=== PATIENT | female | born 1995 | race Caucasian/White ===

== ENCOUNTER 2018-02-24 21:54 | Observation (INO) ==
[2018-02-24 22:40] LABS: Baso % (Auto) 0.4 % (0.0-2.0); Eos # (Auto) 0.2 th/mm3 (0.0-0.4); Eos % (Auto) 1.6 % (0.0-4.0); Hematocrit 40.2 % (35.0-46.0); Hemoglobin 13.6 gm/dL (11.6-15.3); Lymph # (Auto) 2.5 th/mm3 (1.0-4.8); Lymph % (Auto) 25.2 % (9.0-44.0); Mean Corpuscular HGB Conc 33.7 % (32.0-36.0); Mean Corpuscular Hemoglobin 30.3 pg (27.0-34.0); Mean Corpuscular Volume 89.9 fL (80.0-100.0); Mean Platelet Volume 9.5 fL (7.0-11.0); Mono # (Auto) 0.8 th/mm3 (0.0-0.9); Mono % (Auto) 7.7 % (0.0-8.0); Neut # (Auto) 6.3 th/mm3 (1.8-7.7); Neut % (Auto) 65.1 % (16.0-70.0); Platelet Count 242 th/mm3 (150-450); Red Blood Count 4.47 mil/mm3 (4.00-5.30); Red Cell Distribution Width 13.2 % (11.6-17.2); White Blood Count 9.8 th/mm3 (4.0-11.0)
--- NOTE | 2018-02-24 22:40 | CT ---
EXAM DATE: 02/24/2018 10:37 PM EST AGE/SEX: 22 years / Female INDICATIONS: Right facial droop. CLINICAL DATA: This is the patient's initial encounter. Patient reports that signs and symptoms have been present for 1 day and indicates a pain score of 0/10. MEDICAL/SURGICAL HISTORY: None. None. RADIATION DOSE: 56.35 CTDI (mGy) COMPARISON: No prior exams available for comparison. TECHNIQUE: CT of the head without contrast. Using automated exposure control and adjustment of the mA and/or kV according to patient size, radiation dose was kept as low as reasonably achievable to ob tain optimal diagnostic quality images. DICOM format image data is available electronically for revi ew and comparison. FINDINGS: Cerebrum: The ventricles are normal for age. No evidence of midline shift, mass lesion, hemorrhage or acute infarction. No extraaxial fluid collections are seen. Posterior Fossa: The cerebellum and brainstem are intact. The 4th ventricle is midline. The cerebe llopontine angle is unremarkable. Extracranial: The visualized portion of the orbits is intact. Skull: The calvaria is intact. No evidence of skull fracture. CONCLUSION: 1. Negative noncontrast CT brain. . Electronically signed by: Ras Stacy MD 02/24/2018 10:39 PM EST
[2018-02-24 23:01] LABS: Alanine Aminotransferase 21 U/L (10-53); Albumin 3.8 g/dL (3.4-5.0); Anion Gap 9 meq/L (5-15); Aspartate Aminotransferase 19 U/L (15-37); Blood Urea Nitrogen 15 mg/dL (7-18); Calcium 8.4 mg/dL (8.5-10.1); Carbon Dioxide 25.8 meq/L (21.0-32.0); Chloride 105 meq/L (98-107); Glomerular Filtration Rate Greater Than 89 mL/min (>89); Glucose,Random 126 mg/dL (74-106); Potassium 3.2 meq/L (3.5-5.1); Sodium 140 meq/L (136-145)
[2018-02-24 23:04] LABS: Alkaline Phosphatase 48 U/L (45-117); Total Protein 7.8 g/dL (6.4-8.2)
--- NOTE | 2018-02-24 23:15 | ED ---
HPI General Chief Complaint: Neuro Symptoms/Deficit Stated Complaint: facial pain Time Seen by Provider: 02/24/18 22:11 Source: patient Mode of arrival: ambulatory Limitations: no limitations History of Present Illness HPI Narrative: The patient is 22 years old and arrives with a complaint of asymmetric smile. She notes that the right lower lip appears lower on her smile the left lower lip. This is acute and new. No similar prior episode has occurred. She reports no acute numbness tingling weakness elsewhere. Symptoms started suddenly about 30 minutes prior to ER arrival. Patient denies drug alcohol abuse. She reports being a chronic Lyme carrier. 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 She reports her father has a history of schwannoma. Related Data Home Medications Medication Instructions Recorded Confirmed norgestimate-ethinyl estradiol 1 tab PO DAILY 02/24/18 02/24/18 [Tri-Sprintec (28)] Allergies Allergy/AdvReac Type Severity Reaction Status Date / Time oxycodone Allergy Anaphylaxis Verified 02/24/18 22:18 Penicillins Allergy Anaphylaxis Verified 02/24/18 22:18 Review of Systems ROS: all other systems reviewed are negative [facility] Medical History Medical History SLAP lesion of left shoulder (Acute) Social History Social History Second Hand Smoke Exposure: No Smoking Status: Never smoker How Often Do You Have a Drink Containing Alcohol: Never Recent Travel in [facility] within the Last 8 Weeks: No Recent Out of Country Travel within the Last 8 Weeks: No Exam Narrative Exam Narrative: GENERAL: 22-year-old female pleasant well-nourished well- developed no acute distress SKIN: Focused skin assessment warm/dry. HEAD: Atraumatic. Normocephalic. EYES: Pupils equal and round. No scleral icterus. No injection or drainage. ENT: No nasal bleeding or discharge. Mucous membranes pink and moist. NECK: Trachea midline. No JVD. CARDIOVASCULAR: Regular rate and rhythm. No murmur appreciated. RESPIRATORY: No accessory muscle use. Clear to auscultation. Breath sounds equal bilaterally. GASTROINTESTINAL: Abdomen soft, non-tender, nondistended. Hepatic and splenic margins not palpable. MUSCULOSKELETAL: No obvious deformities. No clubbing. No cyanosis. No edema. NEUROLOGICAL: There is mild facial asymmetry with a smile on the right side. There is no depression of the nasolabial fold on either side. The right lower lip does appear slightly lower than the left side and the patient smiles. There is also some uvular deviation to the left. Forehead wrinkle normal. the eyebrows are symmetric with elevation. Motor function is normal 5/5 throughout. Speech memory and mentation normal. PSYCHIATRIC: Appropriate mood and affect; insight and judgment normal. Course Initial Documented Vital Signs Temperature 98.0 F 02/24/18 22:09 Pulse Rate 91 H 02/24/18 22:09 Respiratory Rate 16 02/24/18 22:09 Blood Pressure 142/92 H 02/24/18 22:09 Pulse Oximetry 100 02/24/18 22:09 Last Documented Vital Signs Temperature 98.0 F 02/24/18 22:09 Pulse Rate 84 02/24/18 22:22 Respiratory Rate 16 02/24/18 22:09 Blood Pressure 142/92 H 02/24/18 22:09 Pulse Oximetry 100 02/24/18 22:09 Medical Decision Making [facility] Narrative Medical decision making narrative: Patient has a focal neurologic deficit involving the right lower lip. There is also uvula deviation. There is no other focal deficit. Does not appear to be Pantoja's to the symmetry of the eyebrows. Uvular deviation is noted. I do not believe this patient would benefit from TPA and is considered extremely unlikely to be a stroke. Patient has an excellent understanding overall the pathology and the treatment is agreement that TPA would be inappropriate. Case discussed with neurologist Dr. Willard who advises admission for MRI in the morning and neurology consultation. Case discussed Dr. Fairchild for the hospitalist service. Medical Screen Exam Complete: Yes Emergency Medical Condition: Yes Differential Diagnosis Differential Diagnosis: TIA, Pantoja's palsy, stroke, peripheral nerve palsy, mononeuropathy multiplex, Lyme disease Lab Data Result diagrams: 02/24/18 22:30 02/24/18 22:30 Lab Results 02/24/18 02/24/18 Range/Units 22:30 22:30 WBC 9.8 (4.0-11.0) th/mm3 RBC 4.47 (4.00-5.30) mil/mm3 Hgb 13.6 (11.6-15.3) gm/dL Hct 40.2 (35.0-46.0) % MCV 89.9 (80.0-100.0) fL MCH 30.3 (27.0-34.0) pg MCHC 33.7 (32.0-36.0) % RDW 13.2 (11.6-17.2) % Plt Count 242 (150-450) th/mm3 MPV 9.5 (7.0-11.0) fL Neut % (Auto) 65.1 (16.0-70.0) % Lymph % (Auto) 25.2 (9.0-44.0) % [place] % (Auto) 7.7 (0.0-8.0) % Eos % (Auto) 1.6 (0.0-4.0) % Baso % (Auto) 0.4 (0.0-2.0) % Neut # (Auto) 6.3 (1.8-7.7) th/mm3 Lymph # (Auto) 2.5 (1.0-4.8) th/mm3 [place] # (Auto) 0.8 (0.0-0.9) th/mm3 Eos # (Auto) 0.2 (0.0-0.4) th/mm3 Baso # (Auto) 0.0 (0.0-0.2) th/mm3 WBC Differential . Differential Comment Auto diff final Sodium 140 (136-145) meq/L Potassium 3.2 L (3.5-5.1) meq/L Chloride 105 (98-107) meq/L Carbon Dioxide 25.8 (21.0-32.0) meq/L Anion Gap 9 (5-15) meq/L BUN 15 (7-18) mg/dL Creatinine 0.68 (0.50-1.00) mg/dL Estimated GFR Greater than 89 (>89) mL/min Random Glucose 126 H (74-106) mg/dL Calcium 8.4 L (8.5-10.1) mg/dL Total Bilirubin 0.2 (0.2-1.0) mg/dL AST 19 (15-37) U/L ALT 21 (10-53) U/L Alkaline Phosphatase 48 (45-117) U/L Total Protein 7.8 (6.4-8.2) g/dL Albumin 3.8 (3.4-5.0) g/dL Imaging Data Radiologist's impression: Head CT 11/14/18 22:19 CONCLUSION: 1. Negative noncontrast CT brain. . Discharge Plan Discharge Disposition Patient Disposition: 30 Still Patient Physicians Team ED Provider: Zaid Schrader Primary Care Provider: Primary Care Melly Mayen Rxs /Orders / Referrals /Forms Prescriptions: No Action norgestimate-ethinyl estradiol [Tri-Sprintec (28)] 0.18/0.215/0.25 mg-35 mcg ( 28) Tablet 1 tab PO DAILY RF: 0 Status ED Status: With Doctor
[2018-02-25 00:23] LABS: Amphetamine Screen,Urine Neg (Neg); Barbiturate Screen,Urine Neg (Neg); Cannabinoid Screen,Urine Neg (Neg); Cocaine Screen,Urine Neg (Neg); Opiate Screen,Urine Neg (Neg)
[2018-02-25 00:29] LABS: Bacteria,Urine Rare /hpf; Bilirubin,Urine Negative (Negative); Clarity,Urine Clear (Clear); Color,Urine Straw (Yellw/Straw); Glucose,Urine (UA) Negative (Negative); Leukocyte Esterase,Urine Negative (Negative); Nitrite,Urine Negative (Negative); Specific Gravity,Urine 1.004 (1.002-1.035); Squamous Epithelial Cell,Urine 1 /hpf (0-5)
[2018-02-25] MEDS ORDERED: Dextrose 50% in Water 50 ML Vial IV.PUSH PRN (00:34)
[2018-02-25] MEDS ORDERED: Insulin NovoLOG Aspart Correctional Sugar Inj SQ PRN (00:34)
[2018-02-25] MEDS ORDERED: Sod Chloride 0.9% Inj 1,000 ML IV.CONT SCH (00:45)
[2018-02-25] MEDS ORDERED: Sodium Chloride 0.9% 2 ML Flush PRN IV.FLUSH (02:00)
--- NOTE | 2018-02-25 02:00 | P.HP ---
History of Present Illness Service: [facility] Primary Care Physician: No Primary Care Physician History of Present Illness: 22-year-old female with a past medical history significant for chronic Lyme disease (diagnosed 2 years ago) presents to the emergency department for the evaluation of right sided mouth droop. The patient reports that she was in the bathroom when she saw her face in the mirror and noticed that the right side of her mouth had a droop that was worse with smiling. The patient denies any word finding difficulties or slurred speech. No confusion. No recent trauma. No history of recent upper respiratory illness or fevers. No chest pain or shortness of breath. No abdominal pain. No nausea/vomiting/diarrhea. No other focal deficits. Review of Systems All other systems reviewed negative except as stated in HPI PMFSH - History History Provided By: Patient - Medical History Medical History: Medical History (Last Updated 02/25/18 @ 01:52 by Janis Fairchild MD) Lyme disease SLAP lesion of left shoulder - Surgical History Surgical History: Surgical History (Last Updated 02/25/18 @ 01:52 by Janis Fairchild MD) Status post labral repair of shoulder - Family History Family History: Family History (Last Updated 02/25/18 @ 01:53 by Janis Fairchild MD) Other CHF (congestive heart failure) Hypertension - Social History I have reviewed the patient's Social History: Yes - Tobacco History Second Hand Smoke Exposure: No Smoking Status: Never smoker - Alcohol History How Often Do You Have a Drink Containing Alcohol: Never - Travel History Recent Travel in the [place] Within the Last 8 Weeks: No Recent Travel Out of the Country Within the Last 8 Weeks: No - Immunization History Tetanus Immunization: <5 Years Medications and Allergies Active Medications: Active Medications Aspirin (Aspirin) 325 mg PO DAILY [facility] Dextrose (D50w Vial) 50 ml IV.PUSH UNSCH PRN PRN Reason: per Hypoglycemic Protocol Glucagon (Glucagon Inj) 1 mg OTHER UNSCH PRN PRN Reason: per Hypoglycemic Protocol Sodium Chloride (Ns Inj) 1,000 mls @ 70 mls/hr IV.CONT .[id number] ANNE Last Admin: 02/25/18 01:03 Dose: 70 mls/hr Insulin Aspart (Novolog Insulin Correctional Sugar Inj) 0 unit SQ ACHS PRN; Protocol PRN Reason: Per Protocol Sodium Chloride (Ns Flush) 2 ml IV.FLUSH PRN PRN PRN Reason: FLUSH AFTER USING IV ACCESS Allergies Allergy/AdvReac Type Severity Reaction Status Date / Time oxycodone Allergy Anaphylaxis Verified 02/24/18 22:18 Penicillins Allergy Anaphylaxis Verified 02/24/18 22:18 Home Medications Medication Instructions Recorded Confirmed Type norgestimate-ethinyl estradiol 1 tab PO DAILY 02/24/18 02/24/18 History [Tri-Sprintec (28)] Exam Vital signs: Vital Signs 02/24/18 22:09 02/24/18 22:22 02/25/18 01:04 Temperature 98.0 F Pulse Rate 91 H 84 78 Respiratory Rate 16 Blood Pressure 142/92 H Pulse Oximetry 100 Intake & Output 02/24/18 02/24/18 02/25/18 06:59 18:59 06:59 Weight 50 kg Narrative: Gen.: No acute distress Head: Normocephalic. Atraumatic. EENT: Pupils equal round and reactive to light. Nose without drainage. Airway intact. Throat without injection. Cardiovascular: Regular rate and rhythm. No murmurs, rubs or gallops. Respiratory: Lungs clear to auscultation bilaterally. No wheezes or rhonchi. Abdomen: Soft, nontender, nondistended. No peritoneal signs. Musculoskeletal: No gross deformities. No edema. Skin: No obvious rashes or erythema. Neuro: Right mouth facial droop. No other cranial nerve deficits. Strength 5/ 5 throughout. Normal speech. Alert and oriented x4. Results - Labs CBC & Chem 7: 02/24/18 22:30 02/24/18 22:30 Labs: Laboratory Results - last 24 hr 02/24/18 02/24/18 02/24/18 22:30 22:30 23:22 WBC 9.8 RBC 4.47 Hgb 13.6 Hct 40.2 MCV 89.9 MCH 30.3 MCHC 33.7 RDW 13.2 Plt Count 242 MPV 9.5 Neut % (Auto) 65.1 Lymph % (Auto) 25.2 [place] % (Auto) 7.7 Eos % (Auto) 1.6 Baso % (Auto) 0.4 Neut # (Auto) 6.3 Lymph # (Auto) 2.5 [place] # (Auto) 0.8 Eos # (Auto) 0.2 Baso # (Auto) 0.0 WBC Differential . Differential Comment Auto diff final Sodium 140 Potassium 3.2 L Chloride 105 Carbon Dioxide 25.8 Anion Gap 9 BUN 15 Creatinine 0.68 Estimated GFR Greater than 89 Random Glucose 126 H Calcium 8.4 L Total Bilirubin 0.2 AST 19 ALT 21 Alkaline Phosphatase 48 Total Protein 7.8 Albumin 3.8 Urine Color Urine Clarity Urine pH Ur Specific [place] Urine Protein Urine Glucose (UA) Urine Ketones Urine Occult Blood Urine Nitrate Urine Bilirubin Urine Urobilinogen Ur Leukocyte Esterase Ur Squamous Epith Cells Urine Bacteria Micro UA Comment Ur Microscopic Review Urine Culture Comments Urine Opiates Screen Neg Ur Barbiturates Screen Neg Ur Amphetamines Screen Neg U Benzodiazepines Scrn Neg Urine Cocaine Screen Neg U Cannabinoids Screen Neg 02/24/18 23:22 WBC RBC Hgb Hct MCV MCH MCHC RDW Plt Count MPV Neut % (Auto) Lymph % (Auto) [place] % (Auto) Eos % (Auto) Baso % (Auto) Neut # (Auto) Lymph # (Auto) [place] # (Auto) Eos # (Auto) Baso # (Auto) WBC Differential Differential Comment Sodium Potassium Chloride Carbon Dioxide Anion Gap BUN Creatinine Estimated GFR Random Glucose Calcium Total Bilirubin AST ALT Alkaline Phosphatase Total Protein Albumin Urine Color Straw Urine Clarity Clear Urine pH 6.0 Ur Specific [place] 1.004 Urine Protein Negative Urine Glucose (UA) Negative Urine Ketones Negative Urine Occult Blood Small H Urine Nitrate Negative Urine Bilirubin Negative Urine Urobilinogen Less than 2 Ur Leukocyte Esterase Negative Ur Squamous Epith Cells 1 Urine Bacteria Rare H Micro UA Comment Culture not ind Ur Microscopic Review Not Reportable Urine Culture Comments Culture not ind Urine Opiates Screen Ur Barbiturates Screen Ur Amphetamines Screen U Benzodiazepines Scrn Urine Cocaine Screen U Cannabinoids Screen - Imaging Impressions Head CT 02/24/18 22:19 CONCLUSION: 1. Negative noncontrast CT brain. . Caprini VTE Risk Assessment Caprini VTE Risk Assessment: No/Low Risk (score <= 1) Caprini Risk Assessment Model: Point Value = 1 Point Value = 2 Point Value = 3 Point Value = 5 Age 41-60 Minor surgery BMI > 25 kg/m2 Swollen legs Varicose veins or History of unexplained or recurrent spontaneous Oral contraceptives or hormone replacement Sepsis (< 1 month) Serious lung disease, including pneumonia (< 1 month) Abnormal pulmonary function Acute myocardial infarction Congestive heart failure (< 1 month) History of inflammatory bowel disease Medical patient at bed rest Age 61-74 Arthroscopic surgery Major open surgery (> 45 min) Laparoscopic surgery (> 45 min) Malignancy Confined to bed (> 72 hours) Immobilizing plaster cast Central venous access Age >= 75 History of VTE Family history of VTE Factor V Leiden Prothrombin [id number] Lupus anticoagulant Anticardiolipin antibodies Elevated serum homocysteine Heparin-induced thrombocytopenia Other congenital or acquired thrombophilia Stroke (< 1 month) Elective arthroplasty Hip, pelvis, or leg fracture Acute spinal cord injury (< 1 month) Prophylaxis Regimen: Total Risk Factor Score Risk Level Prophylaxis Regimen 0-1 Low Early ambulation 2 Moderate Order ONE of the following: *Sequential Compression Device (SCD) *Heparin 5000 units SQ BID 3-4 Higher Order ONE of the following medications: *Heparin 5000 units SQ TID *Enoxaparin/Lovenox 40 mg SQ daily (WT < 150 kg, CrCl > 30 mL/min) *Enoxaparin/Lovenox 30 mg SQ daily (WT < 150 kg, CrCl > 10-29 mL/min) *Enoxaparin/Lovenox 30 mg SQ BID (WT < 150 kg, CrCl > 30 mL/min) AND/OR *Sequential Compression Device (SCD) 5 or more Highest Order ONE of the following medications: *Heparin 5000 units SQ TID (Preferred with Epidurals) *Enoxaparin/Lovenox 40 mg SQ daily (WT < 150 kg, CrCl > 30 mL/min) *Enoxaparin/Lovenox 30 mg SQ daily (WT < 150 kg, CrCl > 10-29 mL/min) *Enoxaparin/Lovenox 30 mg SQ BID (WT < 150 kg, CrCl > 30 mL/min) AND *Sequential Compression Device (SCD) Assessment and Plan - Plan Assessment/plan: 1. Neurologic deficit Head CT negative for acute process MRI/MRA pending Neurology consulted, appreciate recommendations Cannot exclude complications from Lyme disease, Lyme antibody and PCR pending 2. Hypokalemia Potassium 3.2, status post p.o. repletion Monitor BMP FEN Regular diet Electrolytes: As above
--- NOTE | 2018-02-25 08:18 | MR ---
EXAM DATE: 02/25/2018 8:14 AM EST AGE/SEX: 22 years / Female INDICATIONS: TIA. Right facial droop. CLINICAL DATA: This is the patient's subsequent encounter. Patient reports that signs and symptoms h ave been present for 2 days and indicates a pain score of 0/10. MEDICAL/SURGICAL HISTORY: . Lyme's disease. . Right shoulder repair. COMPARISON: [facility] [place], CT HEAD W/O CONTRAST, 02/24/2018. . TECHNIQUE: 3D [id number] MRA was performed. Source images, multiplanar STS MIP, and 3D volum e MIP reconstructions were reviewed. FINDINGS: There is excellent visualization of the major intracranial arteries out to the second-order branch ve ssels. There is no evidence for aneurysm, vessel truncation or stenosis, and no evidence for vascula r malformation. There are patent bilateral posterior communicating arteries. CONCLUSION: 1. No significant stenosis, occlusion or aneurysm formation. 2. Patent bilateral posterior communicating arteries. Electronically signed by: Merrill Lanza MD 02/25/2018 8:16 AM EST
--- NOTE | 2018-02-25 08:20 | MR ---
EXAM DATE: 02/25/2018 8:15 AM EST AGE/SEX: 22 years / Female INDICATIONS: TIA. Right facial droop. CLINICAL DATA: This is the patient's subsequent encounter. Patient reports that signs and symptoms h ave been present for 2 days and indicates a pain score of 0/10. MEDICAL/SURGICAL HISTORY: . Lyme's disease. . Right shoulder repair. COMPARISON: [facility] [place], MRA HEAD W/O CONTRAST, 02/25/2018. [facility] [place], CT HEAD W/O CONTRAST, 02/24/2018. . TECHNIQUE: Multiplanar, multisequence examination of the brain was performed without contrast. FINDINGS: Cerebrum: The ventricles are normal for age. No evidence of midline shift, mass lesion, hemorrhage or acute infarction. No extraaxial fluid collections are seen. The pituitary gland and suprasellar cistern are normal in configuration. White Matter: No significant signal abnormalities are seen in the white matter. Posterior Fossa: The cerebellum and brainstem are intact. The 4th ventricle is midline. The cerebel lopontine angle is unremarkable. The cerebellar tonsils are normal in position. Diffusion Imaging: No focal areas of restricted diffusion are seen. No evidence of acute infarction . Extracranial: The visualized portions of the orbits and paranasal sinuses are unremarkable. CONCLUSION: 1. Negative MR Brain non contrast. Electronically signed by: Merrill Lanza MD 02/25/2018 8:18 AM EST
[2018-02-25] MEDS ORDERED: Bisacodyl 10 MG Supp RECTAL PRN (09:10)
[2018-02-25] MEDS ORDERED: Acetaminophen 325 MG Tablet PO PRN (09:10)
--- NOTE | 2018-02-25 09:36 | MB ---
cc: Vaishnavi Perez MD DATE: 02/25/2018 REASON FOR CONSULTATION: Right facial droop. 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 Was treated unconventional via a chiropractor, never on antibiotics; but reports that she had a 2-week course of doxycycline not too long back for a skin issue and seemed to have made her feel better. However, yesterday she went to the bathroom to wash her face and noticed in the mirror that her right side of the mouth was droopy when she smiled. She did not have any weakness in the arms or legs, headache, chest pain, shortness of breath, loss of vision, or double vision. She states it may be a little different sensation on the inner side of her mouth in the gums and cheek area, but very mild if at all. No trouble with expressing herself or understanding language. There is no head trauma. She states that she had a mild earache, but did not pay much attention to it. The pain was not severe. She still has had mild droopiness and her family can confirm as well. It does not involve the forehead. She has no issues with the eye. She states she cannot whistle but that is normal for her. No trouble drinking with a straw. PAST MEDICAL HISTORY: Stated to have Lyme as well as a lesion of the labrum of the right shoulder, I believe, which she had surgery for as well. FAMILY HISTORY: Hypertension, heart disease. She had an uncle that had a stroke in his mid 40s, but that was found to be a heart issue. Her father had I believe a schwannoma. SOCIAL HISTORY: Does not smoke, does not drink. PHYSICAL EXAMINATION: VITAL SIGNS: Temperature is 98, pulse 78, respiratory rate 16, blood pressure 126/81, saturating at 100% on room air. NECK: Supple. I do not appreciate any bruits. HEART: Regular. NEUROLOGIC: She is awake and alert. She is oriented and fluent. Her pupils are reactive. Extraocular muscles are normal. Visual pedraza are full. She does have slight droopiness of the right corner of the mouth. Her tongue is midline. Facial sensation; however, is normal. Both ears tympanic membranes are normal. There are no lesions. There is note tenderness to touch. There is no Pantoja's phenomena of the eye. She can close her eye and maintain it against resistance. Motor green, she has good strength in both arms. She has some residual weakness from the shoulder on the right, but this is not new. There is no drift, no leg lag. Cerebellar testing normal. DTRs are brisk throughout, not unusual for her age. Toes are both downgoing. Sensory is normal. She has been ambulating on her own with no difficulties. DIAGNOSTIC DATA: Imaging studies have been unremarkable. MRA did not show any occlusions or aneurysms. Brain MRI was done without contrast and was essentially unremarkable. Her labs: CBC is normal. Chemistries: Potassium is a little low at 3.2, glucose 126, calcium 8.4; but other than that, everything else was normal. UA showed small blood, but otherwise unremarkable. Tox screen negative. Serology for Lyme is all pending. 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 I would recommend putting her on a steroid pack for a week as well as for a week's course of Famvir or acyclovir. I will have physical therapy work with her, give her exercises for strengthening the face. Certainly other testing can be done if indicated. Would recommend possibly having her follow up with infectious disease whether they can consult here or as an outpatient. I do not think at this point we want to do a hypercoagulable panel, but certainly can be considered as well as an outpatient Holter monitor, although she denies having any palpitations. Her imaging is negative. Anticipate if she is doing well, we will send her home with at least some steroids and antiviral. I am not sure that Lyme panel will be back in a timely fashion, but can follow up with his infectious disease physician as an outpatient since she has never actually been assessed. Continue current care. MD ESMER Sim/sonja , 09:13 AM , 09:22 AM
[2018-02-25] MEDS: Aspirin 325 MG Tablet PO SCH (09:50)
--- NOTE | 2018-02-25 10:17 | P.PN ---
Physical Exam Vital signs: Vital Signs 02/24/18 22:09 02/24/18 22:22 02/25/18 01:04 Temperature 98.0 F Pulse Rate 91 H 84 78 Respiratory Rate 16 Blood Pressure 142/92 H Pulse Oximetry 100 02/25/18 04:23 Temperature Pulse Rate 78 Respiratory Rate 16 Blood Pressure 126/81 Pulse Oximetry 100 Intake & Output 02/24/18 02/25/18 02/25/18 18:59 06:59 18:59 Intake Total 80 / 80 Balance 80 / 80 Weight 50 kg 50 kg Intake: IV 80 / 80 NS Inj 1,000 ML @ 70 mls/hr IV. 80 / 80 CONT .[id number] ANNE Rx#:[id number] Other: # Voids 3 Weight On Admission 50 kg Narrative: Gen.: No acute distress Cardiovascular: Regular rate and rhythm. No murmurs, rubs or gallops. Respiratory: Lungs clear to auscultation bilaterally. No wheezes or rhonchi. Abdomen: Soft, nontender, nondistended. No peritoneal signs. Musculoskeletal: No gross deformities. No edema. Skin: No obvious rashes or erythema. Neuro: Right mouth facial droop. No other cranial nerve deficits. Strength 5/ 5 throughout. Normal speech. Alert and oriented x4. Results - Labs CBC & Chem 7: 02/24/18 22:30 02/24/18 22:30 Laboratory Results - last 24 hr 02/24/18 02/24/18 02/24/18 22:30 22:30 23:22 WBC 9.8 RBC 4.47 Hgb 13.6 Hct 40.2 MCV 89.9 MCH 30.3 MCHC 33.7 RDW 13.2 Plt Count 242 MPV 9.5 Neut % (Auto) 65.1 Lymph % (Auto) 25.2 [place] % (Auto) 7.7 Eos % (Auto) 1.6 Baso % (Auto) 0.4 Neut # (Auto) 6.3 Lymph # (Auto) 2.5 [place] # (Auto) 0.8 Eos # (Auto) 0.2 Baso # (Auto) 0.0 WBC Differential . Differential Comment Auto diff final Sodium 140 Potassium 3.2 L Chloride 105 Carbon Dioxide 25.8 Anion Gap 9 BUN 15 Creatinine 0.68 Estimated GFR Greater than 89 Random Glucose 126 H Calcium 8.4 L Total Bilirubin 0.2 AST 19 ALT 21 Alkaline Phosphatase 48 Total Protein 7.8 Albumin 3.8 Urine Color Urine Clarity Urine pH Ur Specific [place] Urine Protein Urine Glucose (UA) Urine Ketones Urine Occult Blood Urine Nitrate Urine Bilirubin Urine Urobilinogen Ur Leukocyte Esterase Ur Squamous Epith Cells Urine Bacteria Micro UA Comment Ur Microscopic Review Urine Culture Comments Urine Opiates Screen Neg Ur Barbiturates Screen Neg Ur Amphetamines Screen Neg U Benzodiazepines Scrn Neg Urine Cocaine Screen Neg U Cannabinoids Screen Neg 02/24/18 23:22 WBC RBC Hgb Hct MCV MCH MCHC RDW Plt Count MPV Neut % (Auto) Lymph % (Auto) [place] % (Auto) Eos % (Auto) Baso % (Auto) Neut # (Auto) Lymph # (Auto) [place] # (Auto) Eos # (Auto) Baso # (Auto) WBC Differential Differential Comment Sodium Potassium Chloride Carbon Dioxide Anion Gap BUN Creatinine Estimated GFR Random Glucose Calcium Total Bilirubin AST ALT Alkaline Phosphatase Total Protein Albumin Urine Color Straw Urine Clarity Clear Urine pH 6.0 Ur Specific [place] 1.004 Urine Protein Negative Urine Glucose (UA) Negative Urine Ketones Negative Urine Occult Blood Small H Urine Nitrate Negative Urine Bilirubin Negative Urine Urobilinogen Less than 2 Ur Leukocyte Esterase Negative Ur Squamous Epith Cells 1 Urine Bacteria Rare H Micro UA Comment Culture not ind Ur Microscopic Review Not Reportable Urine Culture Comments Culture not ind Urine Opiates Screen Ur Barbiturates Screen Ur Amphetamines Screen U Benzodiazepines Scrn Urine Cocaine Screen U Cannabinoids Screen - Imaging Impressions Head CT 02/24/18 22:19 CONCLUSION: 1. Negative noncontrast CT brain. . Head MRI 02/25/18 00:00 CONCLUSION: 1. Negative MR Brain non contrast. Head MRA 02/25/18 00:00 CONCLUSION: 1. No significant stenosis, occlusion or aneurysm formation. 2. Patent bilateral posterior communicating arteries. - Procedures none Assessment and Plan - Plan 1. Neurologic deficit Head CT negative for acute process MRI/MRA negative Neurology consulted, appreciate recommendations Cannot exclude complications from Lyme disease, Lyme antibody and PCR pending 2. Hypokalemia Potassium 3.2, status post p.o. repletion Monitor BMP FEN Regular diet Electrolytes: As above
[2018-02-25] MEDS: Sodium Chloride 0.9% 2 ML Flush BID IV.FLUSH SCH ×2 (10:27→21:41)
[2018-02-25] MEDS: valACYclovir 500 MG Tab PO SCH ×2 (15:41→21:39)
[2018-02-25] MEDS: Senna/Docusate Sodium 8.6/50 MG Tablet PO SCH (21:41)
[2018-02-26] MEDS: valACYclovir 500 MG Tab PO SCH (06:03)
[2018-02-26 07:05] LABS: Baso % (Auto) 0.3 % (0.0-2.0); Eos % (Auto) 0.1 % (0.0-4.0); Hemoglobin 13.7 gm/dL (11.6-15.3); Lymph # (Auto) 0.9 th/mm3 (1.0-4.8); Lymph % (Auto) 8.2 % (9.0-44.0); Mean Corpuscular HGB Conc 34.2 % (32.0-36.0); Mean Corpuscular Hemoglobin 30.3 pg (27.0-34.0); Mean Corpuscular Volume 88.6 fL (80.0-100.0); Mean Platelet Volume 9.9 fL (7.0-11.0); Mono # (Auto) 0.3 th/mm3 (0.0-0.9); Mono % (Auto) 2.5 % (0.0-8.0); Neut % (Auto) 88.9 % (16.0-70.0); Platelet Count 267 th/mm3 (150-450); Red Blood Count 4.52 mil/mm3 (4.00-5.30); White Blood Count 11.2 th/mm3 (4.0-11.0)
[2018-02-26 07:30] LABS: Chloride 106 meq/L (98-107); Sodium 138 meq/L (136-145)
[2018-02-26 07:32] LABS: Calcium 8.6 mg/dL (8.5-10.1)
[2018-02-26 07:33] LABS: Anion Gap 9 meq/L (5-15); Blood Urea Nitrogen 10 mg/dL (7-18); Carbon Dioxide 22.9 meq/L (21.0-32.0); Glucose,Random 127 mg/dL (74-106); Magnesium 1.9 mg/dL (1.5-2.5)
[2018-02-26 07:36] LABS: Glomerular Filtration Rate Greater Than 89 mL/min (>89)
[2018-02-26] MEDS ORDERED: Insulin NovoLOG Aspart Correctional Sugar Inj SQ SCH (08:00)
[2018-02-26 08:42] VITALS: RESP 18
[2018-02-26] MEDS: Aspirin 325 MG Tablet PO SCH (08:44)
[2018-02-26] MEDS: Senna/Docusate Sodium 8.6/50 MG Tablet PO SCH (08:47)
[2018-02-26] MEDS: Sodium Chloride 0.9% 2 ML Flush BID IV.FLUSH SCH (08:47)
[2018-02-26] MEDS ORDERED: predniSONE 20 MG Tablet PO SCH (09:00)
--- NOTE | 2018-02-26 10:14 | P.PNIM ---
Subjective Interval history: Follow up right facial droop. Patient seen and examined, sitting up in bed comfortably in [facility]. Patient's facial droop has improved overnight. PT has been in to see patient and given exercises to assist her at home. Neuro has recommended follow up with ID outpatient, will continue steroids and Vatrex. All questions answered. Mother at bedside as well. Patient agrees to follow up and will make an appointment. VSS afebrile. Physical Exam Vital signs: Vital Signs 02/25/18 13:00 02/25/18 13:07 02/25/18 13:31 Temperature 97.9 F Pulse Rate 83 74 76 Respiratory Rate 20 Blood Pressure 116/66 Pulse Oximetry 97 02/25/18 16:00 02/25/18 20:00 02/26/18 00:00 Temperature 97.1 F L 97.3 F L 96.8 F L Pulse Rate 66 72 80 Respiratory Rate 20 20 20 Blood Pressure 110/61 107/62 108/55 L Pulse Oximetry 99 98 97 02/26/18 04:00 02/26/18 08:00 Temperature 96.7 F L 97.5 F L Pulse Rate 66 82 Respiratory Rate 20 18 Blood Pressure 88/51 L 111/55 L Pulse Oximetry 97 95 Intake & Output 02/25/18 02/26/18 02/26/18 18:59 06:59 18:59 Intake Total 0 / 0 Output Total 1000 / 1000 Balance -1000 / -1000 Weight 50 kg 52 kg Intake: IV 0 / 0 Oral 0 / 0 Output: Urine 1000 / 1000 Other: # Voids 7 # Bowel Movements 0 Weight On Admission 50 kg Narrative: Gen.: No acute distress Head: Normocephalic. Atraumatic. EENT: Pupils equal round and reactive to light. Nose without drainage. Airway intact. Throat without injection. Cardiovascular: Regular rate and rhythm. No murmurs, rubs or gallops. Respiratory: Lungs clear to auscultation bilaterally. No wheezes or rhonchi. Abdomen: Soft, nontender, nondistended. No peritoneal signs. Musculoskeletal: No gross deformities. No edema. Skin: No obvious rashes or erythema. Neuro: Right mouth facial droop. No other cranial nerve deficits. Strength 5/ 5 throughout. Normal speech. Alert and oriented x4. Results - Labs CBC & Chem 7: 02/26/18 06:35 02/26/18 06:35 Laboratory Results - last 24 hr 02/25/18 02/26/18 02/26/18 18:49 00:44 06:35 CBC w Diff Auto diff final WBC 11.2 H RBC 4.52 Hgb 13.7 Hct 40.0 MCV 88.6 MCH 30.3 MCHC 34.2 RDW 13.0 Plt Count 267 MPV 9.9 Neut % (Auto) 88.9 H Lymph % (Auto) 8.2 L [place] % (Auto) 2.5 Eos % (Auto) 0.1 Baso % (Auto) 0.3 Neut # (Auto) 10.0 H Lymph # (Auto) 0.9 L [place] # (Auto) 0.3 Eos # (Auto) 0.0 Baso # (Auto) 0.0 WBC Differential . Differential Comment . Sodium Potassium Chloride Carbon Dioxide Anion Gap BUN Creatinine Estimated GFR POC Glucose 127 H 153 H Random Glucose Calcium Magnesium 02/26/18 02/26/18 06:35 07:54 CBC w Diff WBC RBC Hgb Hct MCV MCH MCHC RDW Plt Count MPV Neut % (Auto) Lymph % (Auto) [place] % (Auto) Eos % (Auto) Baso % (Auto) Neut # (Auto) Lymph # (Auto) [place] # (Auto) Eos # (Auto) Baso # (Auto) WBC Differential Differential Comment Sodium 138 Potassium 4.0 D Chloride 106 Carbon Dioxide 22.9 Anion Gap 9 BUN 10 Creatinine 0.52 Estimated GFR Greater than 89 POC Glucose 117 H Random Glucose 127 H Calcium 8.6 Magnesium 1.9 Assessment and Plan - Plan This is a 22-year-old female patient with: Right facial 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 -Neurology consulted, appreciate recommendations -Cannot exclude complications from Lyme disease, Lyme antibody and PCR pending. Recommendations to follow up outpatient with ID. -Started on steroids, will complete 7-day course as well as Valtrex. -RX written for home. -Follow up ID and neuro outpatient. Hypokalemia -Potassium 3.2, status post p.o. repletion. Improved. DC Home. Regular diet Activity as tolerated Follow up ID and neuro RX as written.
[2018-02-26 11:02] LABS: Cholesterol 180 mg/dL (120-200)
[2018-02-26 11:04] LABS: Chol/HDL Ratio 2.71 Ratio; HDL Cholesterol 66.3 mg/dL (40.0-60.0); LDL Cholesterol,Calculated 103 mg/dL (0-99); Triglycerides 54 mg/dL (42-150)
[2018-02-26 11:18] VITALS: BP 113/55; PULSE 79; TEMP 97.7; O2SAT 97
[2018-02-26 14:50] LABS: Hemoglobin A1c 5.1 % (4.3-6.0)
[2018-02-27 23:51] LABS: Lyme Disease DNA (PCR) NOT DETECTED
[2018-03-02 19:53] LABS: Lyme Ab 18KD IgG WB NON-REACTIVE; Lyme Ab 23KD IgG WB NON-REACTIVE; Lyme Ab 23KD IgM WB NON-REACTIVE; Lyme Ab 28KD IgG WB NON-REACTIVE; Lyme Ab 30KD IgG WB NON-REACTIVE; Lyme Ab 39KD IgG WB NON-REACTIVE; Lyme Ab 39KD IgM WB NON-REACTIVE; Lyme Ab 41KD IgG WB NON-REACTIVE; Lyme Ab 41KD IgM WB NON-REACTIVE; Lyme Ab 45KD IgG WB NON-REACTIVE; Lyme Ab 58KD IgG WB NON-REACTIVE; Lyme Ab 66KD IgG WB REACTIVE; Lyme Ab 93KD IgG WB NON-REACTIVE
== END 2018-02-26 13:40 | disposition home or self-care (01) ==
LOC: NEPE 21:54 → NEDA 21:54 → NEDH 02-25 03:28 → PH3 02-25 12:03
PROVIDERS: ADMIT Hospitalist; ATTEND Hospitalist
DX: R29.810 Facial weakness; E87.6 Hypokalemia